=== PATIENT | male | born 1995 | race Caucasian/White ===

== ENCOUNTER 2017-03-01 16:24 | Emergency (ER) | payer BC ==
[2017-03-01] MEDS ORDERED: Bacitracin Oint 1 GM U/D Packet TOP ONE (16:43)
[2017-03-01] MEDS ORDERED: Diphtheria,Pertussis(Acell),Tetanus Vaccine 0.5 ML Syringe IM ONE (16:44)
[2017-03-01 16:48] VITALS: BP 139/72
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
== END 2017-03-01 17:32 | disposition home or self-care (01) ==
LOC: MW.ED 16:24
DX: S40.811A Abrasion of right upper arm, initial encounter (principal); S20.411A Abrasion of right back wall of thorax, initial encounter; V89.2XXA Person injured in unspecified motor-vehicle accident, traffic, initial encounter; Y92.410 Unspecified street and highway as the place of occurrence of the external cause
CPT/HCPCS: 99282; 99283